=== PATIENT | female | born 1940 | race Two or more races ===

== ENCOUNTER → 2016-10-17 | Outpatient (CLI) | payer MEDICARE ==
[2016-10-17 11:25] LABS: BLOOD UREA NITROGEN 20 MG/DL (7-18); GLOMERULAR FILTRATION RATE > 60.0 (>39)
== END ==
LOC: M LAB 10:41
PROVIDERS: ATTEND Internal Medicine Gastroenterology
DX: R10.32 Left lower quadrant pain (principal)

== ENCOUNTER → 2016-10-24 | Outpatient (CLI) | payer MEDICARE ==
[~2016-10-24] MED LIST: GASTROGRAFIN SOLUTION 30ML (Q9963) As Ordered ONE; ISOVUE-370 76% 100ML VIAL (Q9967) As Ordered ONE
--- NOTE | 2016-10-24 15:35 | REP ---
CT abdomen and pelvis without and with IV contrast: With oral contrast. History: Left lower quadrant abdominal pain. Comparison CT study May 15, 2013. CT contrast dose: 100 ml of Isovue [address] findings: Preliminary digital import manager radiograph is unremarkable. The lung bases show cystic bronchiectasis bilaterally in the lower lobes particularly in the right lower lobe. These changes are not new. Some mild associated fibrosis is seen. No pleural effusion noted. There are nonenhancing well-circumscribed low density lesions in the left lobe of the liver consistent with cysts, which are unchanged from the 2013 prior study except that the largest left lobe lesion is a little larger today measuring 2.0 cm currently versus 1.5 cm previously. There is one tiny subcentimeter cyst in the right lobe which is unchanged. There is an 8 mm hypervascular lesion in the periphery of the right lobe of the liver posteriorly consistent with a hemangioma. Not previously noted. The liver is otherwise unremarkable. The spleen is normal in appearance. No adrenal lesion is seen. No pancreatic abnormalities observed. The gallbladder is unremarkable. Kidneys enhance symmetrically and are morphologically intact. No hydronephrosis, cyst, or mass lesion is observed on either side. Small and large intestinal bowel loops are unremarkable. There is an infraumbilical ventral hernia transmitting some omental fat unchanged. Normal appendix is seen. There is left colonic diverticulosis. No CT evidence of diverticulitis. Urinary bladder is unremarkable. Uterus is surgically absent. No pelvic mass or adenopathy is seen. Bone window settings show no bony destructive lesion. Delayed postcontrast imaging shows no evidence of filling defect in the intrarenal collecting systems on either side. Impression: 1. Bilateral lower lobe bronchiectasis, right greater than left. 2. Several scattered hepatic cysts. A small posterior hemangioma is seen in the right lobe of the liver measuring 8 mm. This is not previously seen. Suggest 6-month follow-up CT study with IV contrast. 3. Left colonic diverticulosis without CT evidence of diverticulitis. 4. Stable infraumbilical small ventral hernia transmitting some omental fat. Signed by Mor Ugalde MD 10/24/2016 04:24 P
== END ==
LOC: M RAD 12:04
PROVIDERS: ATTEND Internal Medicine Gastroenterology
DX: J47.9 Bronchiectasis, uncomplicated (principal); K76.89 Other specified diseases of liver; K57.30 Diverticulosis of large intestine without perforation or abscess without bleeding
CPT/HCPCS: 74178; Q9963; Q9967

== ENCOUNTER → 2017-06-12 | Outpatient (CLI) | payer MEDICARE ==
[2017-06-16 00:06] LABS: SJOGREN'S ANTI SS-A <0.2 AI (0.0-0.9); SJOGREN'S ANTI SS-B <0.2 AI (0.0-0.9)
== END ==
LOC: M SMT 11:16
PROVIDERS: ATTEND Internal Medicine Pulmonary Disease
DX: J47.9 Bronchiectasis, uncomplicated (principal)

== ENCOUNTER 2019-02-28 10:59 | Day surgery (SDC) | payer MEDICARE ==
[~2019-02-28] VITALS: Ht 149.9 cm; Wt 63.4 kg
[~2019-02-28 10:59] MED LIST changes: +ACET-897 PO; +ALBU83IN INH; +CALC1CAP34 PO; -GASTROGRAFIN SOLUTION 30ML (Q9963) As Ordered ONE; +GINK1CAP PO; -ISOVUE-370 76% 100ML VIAL (Q9967) As Ordered ONE; +LECI1CAP2 PO; +LR 1,000 ML IV ONE; +MELA3TAB49 PO; +MIRA3350 PO; +MONT10TA2 PO; +PRED5TA PO; +PROB1CAP10 PO; +TRAM50TA2 PO; +VITA500T PO
[2019-02-28] MEDS ORDERED: HYDR-3713 PO (11:29)
[2019-02-28] MEDS ORDERED: ALBUTEROL SULFATE 2.5 MG/0.5 ML INH NEB SOLN As Ordered ONE (11:45)
[2019-02-28] MEDS ORDERED: MIDAZOLAM INJ 2 MG/2 ML VIAL (J2250) As Ordered ONE (11:57)
[2019-02-28] MEDS ORDERED: fentaNYL 100 MCG/2 ML INJECTION (J3010) As Ordered ONE (11:57)
[2019-02-28] MEDS ORDERED: LIDOCAINE 2% INJ 100 MG/5 ML SDV (FOR ANES.) As Ordered ONE (11:57)
[2019-02-28] MEDS ORDERED: PROPOFOL 200 MG/20 ML VIAL As Ordered ONE ×3 (11:57→15:05)
[2019-02-28] MEDS ORDERED: ALBUTEROL SULFATE 2.5 MG/0.5 ML INH NEB SOLN INH ONE (12:00)
[2019-02-28] MEDS ORDERED: LIDOCAINE 2% MDV 20 ML VIAL As Ordered ONE (12:45)
[2019-02-28] MEDS ORDERED: BUPIVACAINE HCL 0.5% 30 ML VIAL As Ordered ONE (12:45)
[2019-02-28] MEDS ORDERED: NEOSPORIN GU IRRIG 20 ML VIAL As Ordered ONE (12:46)
[2019-02-28] MEDS ORDERED: BACITRACIN PWD 50,000 UNITS VIAL As Ordered ONE (12:46)
[2019-02-28] MEDS: dexameTHASONE 4 MG/ML 1ML VIAL (J1100) As Ordered ONE ×2 (14:55→15:21)
[2019-02-28] MEDS ORDERED: ONDANSETRON 4MG/2ML VIAL (J2405) As Ordered ONE (15:02)
[2019-02-28] MEDS ORDERED: dexameTHASONE 4 MG/ML 1ML VIAL (J1100) As Ordered ONE (15:02)
[2019-02-28] MEDS ORDERED: KETOROLAC 60 MG/2 ML VIAL (J1885) As Ordered ONE (15:02)
[2019-02-28 16:10] VITALS: BP 142/79
--- NOTE | 2019-02-28 16:25 | REP ---
Right foot three views History: Fourth and fifth digit arthroplasty A cast is present obscuring detail. The patient is status post arthroplasty of the the fourth and fifth digits. There has been resection of the heads of the proximal phalanges of the fourth and fifth digits. There is no acute fracture or dislocation. There is narrowing of the first and third metatarsal phalangeal joint spaces. Impression: The patient is status post arthroplasty of the fourth and fifth digits. There is anatomic alignment. Electronically Signed by Stevo Elias MD 02/28/2019 04:16 P
--- NOTE | 2019-03-02 10:05 | RO ---
DATE OF SURGERY: 02/28/2019 PREOPERATIVE DIAGNOSES: 1. Deformed 2nd toe, right foot. 2. Hammertoe deformity 4th toe, right foot. 3. Hammertoe deformity 5th toe, right foot. 4. 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 5. Extensor contracture, 5th metatarsophalangeal joint, right foot. POSTOPERATIVE DIAGNOSES: PROCEDURES PERFORMED: 1. Partial 2nd toe amputation, right foot. 2. Proximal interphalangeal joint arthroplasty, 4th toe, right foot. 3. Proximal interphalangeal joint arthroplasty, 5th toe, right foot. 4. Extensor capsulotomy with extensor tendon lengthening, 4th metatarsophalangeal joint, right foot. 5. Extensor capsulotomy with lengthening extensor tendon, 5th metatarsophalangeal joint. HARDWARE UTILIZED: None. SURGEON: Aravind Sim DPM BRUSH LOADER AND HANDLE ATTACHER: None ANESTHESIA: Local MAC HEMOSTASIS: Ankle pneumatic tourniquet at 200 mmHg for 35 minutes. DESCRIPTION OF OPERATION: On 02/28/2019, this 78-year-old white female was taken from her hospital room to the operating room and placed on the operating table in the supine position. Following the induction of intravenous (IV) sedation and local and regional anesthesia, the right lower extremity was prepped and draped in the usual aseptic manner. Attention was directed to the patient's 2nd toe of the right foot, where the following procedure was performed: PARTIAL 2ND TOE AMPUTATION, RIGHT FOOT, AT THE DISTAL INTERPHALANGEAL JOINT: Attention was directed to the patient's 2nd toe, which was noted to be remarkably deformed with a severe angulation at the distal interphalangeal joint. At this time, a modified racket incision was placed at the level of the distal interphalangeal joint, cutting sharply to bone. All bleeders as encountered were electrocoagulated. The toe was disarticulated at the distal interphalangeal joint. Mobilization of the skin at the fusion site revealed the head of the middle phalanx, which was then osteotomized from dorsal to plantar through and through. The wound was flushed with copious amounts of dilute bacitracin, neomycin, and Polymyxin B solution. The skin was coapted and maintained with 4- 0 Prolene in a simple interrupted and horizontal mattress-type fashion. Attention was then directed to the patient's 4th toe, where the following procedure was performed: PROXIMAL INTERPHALANGEAL JOINT ARTHROPLASTY, 4TH TOE, RIGHT FOOT: Attention was directed to the patient's 4th toe, where there was noted to be a severe hammertoe deformity. At this time, a linear incision was placed from the metatarsophalangeal joint to just distal to the proximal interphalangeal joint. Dissection was then carried down, and the extensor expansion and martinez was released. A Z-plasty tendon lengthening was then performed at the extensor tendon. Medial and lateral collateral ligaments were sharply dissected free from the head of the proximal phalanx; and utilizing a power saw, an osteotomy was performed at the anatomical neck of the proximal phalanx from dorsal to plantar medial to lateral through and through, and this was extirpated from the wound. The toe still had a dorsal contracture; and, therefore, the following procedure was performed: 4TH METATARSOPHALANGEAL JOINT CAPSULOTOMY: The dorsal capsulotomy was then released; and utilizing a metatarsal elevator, the plantar plate was released, as well. The wound was then flushed with copious amount of dilute bacitracin, neomycin, and Polymyxin B solution. Utilizing a 4- 0 braided nylon loop suture, a four-stranded core repair was performed of the extensor tendon in a modified Aguirre fashion. The skin was then coapted and maintained utilizing 4-0 Prolene in a simple interrupted and horizontal mattress-type fashion. Attention was then directed to the 5th toe, where the following procedure was performed: PROXIMAL INTERPHALANGEAL JOINT ARTHROPLASTY, 5TH TOE, RIGHT FOOT: Attention was directed to the patient's 5th toe, where the procedure performed on the 4th toe was now performed on the 5th toe without variation or deletion, the only exception being that of anatomical location. There was noted to be an extensor contracture of the 5th metatarsophalangeal joint, therefore, the following procedure was performed: EXTENSOR CAPSULOTOMY WITH RELEASE OF THE PLANTAR PLATE, 5TH METATARSOPHALANGEAL JOINT, RIGHT FOOT: Attention was directed to the patient's 5th metatarsophalangeal joint, where the procedure performed on the 4th metatarsophalangeal joint was now performed on the 5th metatarsophalangeal joint without variation or deletion, the only exception being that of anatomical location. Following the completion of surgical procedure, 4 mg of dexamethasone sodium phosphate was instilled proximal to the surgical site. Attention was directed towards bandaging, where a sterile compressive bandage applied, consisting of Adaptic, 4 x 4's, 4 x 4 splints, Betadine splints to hold the 4th and 5th toe in a straight position, and Coban. The ankle pneumatic tourniquet was rapidly deflated, and instantaneous capillary filling time was noted in digits 1 through 5 of the patient's right foot. The patient, apparently having tolerated the surgical procedure well, was taken from the operating room (OR) to the recovery room for further monitoring by the anesthesia department. Postoperative instructions will be given upon discharge. MARTA
== END 2019-02-28 16:48 | disposition home or self-care (01) ==
LOC: M SDC 10:59
PROVIDERS: ATTEND Podiatrist
DX: M20.41 Other hammer toe(s) (acquired), right foot (principal); M79.671 Pain in right foot; D64.9 Anemia, unspecified; J45.909 Unspecified asthma, uncomplicated; I73.9 Peripheral vascular disease, unspecified; Z88.1 Allergy status to other antibiotic agents; Z79.51 Long term (current) use of inhaled steroids; Z79.52 Long term (current) use of systemic steroids; Z79.899 Other long term (current) drug therapy
CPT/HCPCS: 28200; 28270; 28285; 28825; 73630; 88300; J0690; J1100; J1885; J2250; J2405; J3010

== ENCOUNTER → 2020-01-30 | Outpatient (CLI) | payer MEDICARE ==
[~2020-01-30] MED LIST changes: +HYDR-3713 PO; -LR 1,000 ML IV ONE; -MONT10TA2 PO; +MONT10TA4 PO; +VITA-243 PO; -VITA500T PO
--- NOTE | 2020-01-30 13:53 | REPPI ---
THREE VIEWS LEFT SHOULDER: PRIORS: None. There is AC joint DJD with asymmetric joint space narrowing and osteophytosis. There is heavy humeral head osteophytosis. The humeral head is subluxed superiorly within the glenohumeral joint. There is no acute fracture or dislocation, however, there is a large centimeter-sized calcification superolateral to the humeral head which is smoothly marginated and possibly well corticated. This can be secondary to chronic calcific supraspinatus tendinitis or subdeltoid bursitis. IMPRESSION: Chronic changes as described above. THREE VIEWS OF THE RIGHT SHOULDER: There is AC joint DJD with irregular joint space narrowing and osteophytosis. Heavy humeral had marginal osteophytes are present. The humeral head is subluxated superiorly within the glenohumeral joint. There is no evidence of acute fracture or dislocation. IMPRESSION: Rather marked appearing chronic changes as described above. Electronically Signed by Giorgio Rincon DO 01/30/2020 04:07 P
--- NOTE | 2020-01-30 14:08 | REPPI ---
REASON: Polyarthritis. COMPARISON: None. LEFT HAND FOUR VIEWS: There is asymmetric intradigital joint space narrowing affecting all digits but particularly the proximal and distal interphalangeal joints of the 5th digit where the proximal interphalangeal joint is subluxed medially and the distal interphalangeal joint is subluxed laterally. Heavy marginal osteophyte formation is seen involving the proximal and distal interphalangeal joints of the 5th digit with more mild to moderate appearing osteophyte formation involving the remainder of the digits of the left hand. There slight to moderate marginal osteophyte formation involving the heads of the 2nd and 3rd metacarpals of the left hand. There is also evidence of subluxation of the metacarpophalangeal joints of digits 2 and 3, which is ventromedial. There is no evidence of periarticular osteopenia. There is no evidence of a fracture. IMPRESSION: Degenerative changes as described above, rather advanced. FOUR VIEWS OF THE RIGHT HAND: There asymmetric intradigital joint space narrowing involving all joints particularly the proximal interphalangeal joint of the 4th digit where there is medial subluxation and heavy marginal osteophyte formation. More mild to moderate marginal osteophytes are seen involving all other joints of the right hand. There is mild to moderate subluxation of the 3rd metacarpophalangeal joint, which is predominantly ventral. Slight marginal osteophytosis is seen involving the 2nd and 3rd metacarpal heads. There is no evidence of any acute fracture. There is no periarticular osteopenia. IMPRESSION: Rather advanced chronic changes seen involving the right hand as described above. Electronically Signed by Giorgio Rincon DO 01/30/2020 04:08 P
== END ==
LOC: M PLAIMG 11:34
PROVIDERS: ATTEND Internal Medicine
DX: M19.041 Primary osteoarthritis, right hand (principal); M19.042 Primary osteoarthritis, left hand; M19.011 Primary osteoarthritis, right shoulder; M19.012 Primary osteoarthritis, left shoulder; M06.4 Inflammatory polyarthropathy

== ENCOUNTER → 2020-01-30 | Outpatient (REF) | payer MEDICARE ==
[2020-01-30 16:16] LABS: BASO # 0.1 10^3/uL (0.0-0.2); BASO % 1.3 % (0.0-1.0); EOS # 0.2 10^3/uL (0.0-0.5); EOS % 1.8 % (0.0-3.0); HEMATOCRIT 41.9 % (36.0-47.0); HEMOGLOBIN 12.8 g/dl (12.0-15.5); LYMPH # 2.1 10^3/uL (1.5-5.0); LYMPH % 25.8 % (24.0-44.0); MEAN CORPUSCULAR HEMOGLOBIN 26.6 pg (27.0-33.0); MEAN CORPUSCULAR HGB CONC 30.5 g/dl (32.0-36.5); MEAN CORPUSCULAR VOLUME 87.1 fl (80.0-96.0); MONO # 0.7 10^3/uL (0.0-0.8); NEUTROPHILS # 5.2 10^3/uL (1.5-8.5); NEUTROPHILS % 62.9 % (36.0-66.0); PLATELET COUNT, AUTOMATED 481 10^3/uL (150-450); RED BLOOD COUNT 4.81 10^6/uL (4.00-5.40); WHITE BLOOD COUNT 8.3 10^3/uL (4.0-10.0)
[2020-01-30 16:22] LABS: ALBUMIN 3.8 GM/DL (3.2-5.2); ALT/SGPT 22 U/L (12-78); BILIRUBIN,TOTAL 0.6 MG/DL (0.2-1.0); BLOOD UREA NITROGEN 21 MG/DL (7-18); C REACTIVE PROTEIN QUANTITATIV 0.46 MG/DL (0.00-0.30); CALCIUM LEVEL 9.6 MG/DL (8.8-10.2); CARBON DIOXIDE LEVEL 29 MEQ/L (21-32); CHLORIDE LEVEL 103 MEQ/L (98-107); CREATININE FOR GFR 0.59 MG/DL (0.55-1.30); GLOMERULAR FILTRATION RATE > 60.0 (>39); GLUCOSE, FASTING 81 MG/DL (70-100); POTASSIUM SERUM 4.6 MEQ/L (3.5-5.1); RHEUMATOID FACTOR QUANT < 10.0 IU/ML (<15.0); SODIUM LEVEL 138 MEQ/L (136-145)
[2020-01-30 16:41] LABS: ERYTHROCYTE SEDIMENTATION RATE 35 mm/hr (0-30)
[2020-02-02 10:39] LABS: HEPATITIS B SURFACE ANTIGEN NEGATIVE (NEGATIVE)
== END ==
LOC: M SFHCRHEU 11:13
PROVIDERS: ATTEND Internal Medicine
DX: M06.4 Inflammatory polyarthropathy (principal)

== ENCOUNTER → 2020-03-12 | Outpatient (CLI) | payer MEDICARE ==
[~2020-03-12] MED LIST changes: +FAMO40TA3 PO; +SENN8.6T28 PO; +SULF1TAB93 PO
== END ==
LOC: M LABSMTC 11:04
PROVIDERS: ATTEND Anesthesiology
DX: Z11.59 Encounter for screening for other viral diseases (principal)
CPT/HCPCS: C9803; U0003

== ENCOUNTER 2020-03-15 08:43 | Day surgery (SDC) | payer MEDICARE ==
[~2020-03-15] VITALS: Ht 152.4 cm; Wt 57.3 kg
[~2020-03-15 08:43] MED LIST changes: +NS 1,000 ML IV ONE
[2020-03-15] MEDS ORDERED: propofoL 200 MG/20 ML VIAL As Ordered ONE ×2 (11:28→12:05)
[2020-03-15] MEDS ORDERED: LIDOCAINE 2% 100MG/5ML SDV (FOR ANES.) As Ordered ONE (11:28)
--- NOTE | 2020-03-15 12:24 | ROOR ---
Patient Name: Uma You Procedure Date: 03/15/2020 11:37 AM Date of : 1940 Age: 79 Room: [facility] Gender: Female Note Status: Finalized Procedure: Upper GI endoscopy Indications: Epigastric abdominal pain, Weight loss Providers: Pete Venegas MD Referring MD: MARTINA YADAV MD Requesting Provider: Medicines: Monitored Anesthesia Care Complications: No immediate complications. Procedure: Pre-Anesthesia Assessment: - Prior to the procedure, a History and Physical was performed, and patient medications and allergies were reviewed. The patient is competent. The risks and benefits of the procedure and the sedation options and risks were discussed with the patient. All questions were answered and informed consent was obtained. Patient identification and proposed procedure were verified by the physician, the nurse and the anesthesiologist in the procedure room. Mental Status Examination: alert and oriented. Airway Examination: normal oropharyngeal airway and neck mobility. Respiratory Examination: clear to auscultation. CV Examination: normal. Prophylactic Antibiotics: The patient does not require prophylactic antibiotics. Prior Anticoagulants: The patient has taken no previous anticoagulant or antiplatelet agents. ASA Grade Assessment: III - A patient with severe systemic disease. After reviewing the risks and benefits, the patient was deemed in satisfactory condition to undergo the procedure. The anesthesia plan was to use monitored anesthesia care (MAC). Immediately prior to administration of medications, the patient was re-assessed for adequacy to receive sedatives. The heart rate, respiratory rate, oxygen saturations, blood pressure, adequacy of pulmonary ventilation, and response to care were monitored throughout the procedure. The physical status of the patient was re-assessed after the procedure. The Endoscope was introduced through the mouth, and advanced to the second part of duodenum. The upper GI endoscopy was accomplished without difficulty. The patient tolerated the procedure well. Findings: The examined esophagus was normal. Two non-bleeding cratered gastric ulcers with a clean ulcer base (Ty Class III) were found in the prepyloric region of the stomach. The largest lesion was 10 mm in largest dimension. Biopsies were taken with a cold forceps for histology. Verification of patient identification for the specimen was done by the physician and nurse using the patient's name, date and medical record number. Estimated blood loss was minimal. Diffuse moderate inflammation characterized by erythema and granularity was found in the gastric body and in the gastric antrum. Biopsies were taken with a cold forceps for Helicobacter pylori testing. The duodenal bulb and second portion of the duodenum were normal. Impression: - Normal esophagus. - Non-bleeding gastric ulcers with a clean ulcer base (Ty Class III). Biopsied. - Gastritis. Biopsied. - Normal duodenal bulb and second portion of the duodenum. Recommendation: - Patient has a contact number available for emergencies. The signs and symptoms of potential delayed complications were discussed with the patient. Return to normal activities tomorrow. Written discharge instructions were provided to the patient. - Full liquid diet today, then advance as tolerated to high fiber diet. - Continue present medications. - Use Protonix (pantoprazole) 40 mg PO BID for 3 months. - Await pathology results. - Repeat upper endoscopy in 3 months to check healing. - Return to GI clinic in [facility] (address [address], [address], [place], [facility]) in 4 -- 6 weeks. Please call GI clinic @ [phone] for apppointment date and time. - Return to primary care physician. Pete Venegas MD Pete Venegas MD 03/15/2020 12:24:43 PM Electronically signed by Pete Venegas MD Number of Addenda: 0 Note Initiated On: 03/15/2020 11:37 AM Estimated Blood Loss: Estimated blood loss was minimal.
[2020-03-15] MEDS ORDERED: PANTOPRAZOLE 40MG VIAL (C9113 PER 1) IV ONE (12:30)
--- NOTE | 2020-03-15 12:36 | ROOR ---
Patient Name: Uma You Procedure Date: 03/15/2020 11:38 AM Date of : 1940 Age: 79 Room: [facility] Gender: Female Note Status: Finalized Procedure: Colonoscopy Indications: Constipation, Weight loss Providers: Pete Venegas MD Referring MD: MARTINA YADAV MD Requesting Provider: Medicines: Monitored Anesthesia Care Complications: No immediate complications. Procedure: Pre-Anesthesia Assessment: - Prior to the procedure, a History and Physical was performed, and patient medications and allergies were reviewed. The patient is competent. The risks and benefits of the procedure and the sedation options and risks were discussed with the patient. All questions were answered and informed consent was obtained. Patient identification and proposed procedure were verified by the physician, the nurse and the anesthesiologist in the procedure room. Mental Status Examination: alert and oriented. Airway Examination: normal oropharyngeal airway and neck mobility. Respiratory Examination: clear to auscultation. CV Examination: normal. Prophylactic Antibiotics: The patient does not require prophylactic antibiotics. Prior Anticoagulants: The patient has taken no previous anticoagulant or antiplatelet agents. ASA Grade Assessment: III - A patient with severe systemic disease. After reviewing the risks and benefits, the patient was deemed in satisfactory condition to undergo the procedure. The anesthesia plan was to use monitored anesthesia care (MAC). Immediately prior to administration of medications, the patient was re-assessed for adequacy to receive sedatives. The heart rate, respiratory rate, oxygen saturations, blood pressure, adequacy of pulmonary ventilation, and response to care were monitored throughout the procedure. The physical status of the patient was re-assessed after the procedure. The Colonoscope was introduced through the anus and advanced to the cecum, identified by appendiceal orifice and ileocecal valve. The colonoscopy was performed without difficulty. The patient tolerated the procedure well. The quality of the bowel preparation was good. The ileocecal valve, appendiceal orifice, and rectum were photographed. Scope insertion time was 4 minutes. Scope withdrawal time was 10 minutes. The total duration of the procedure was 16 minutes. Findings: The perianal and digital rectal examinations were normal. A 15 mm polyp was found in the ascending colon. The polyp was sessile. The polyp was removed with a hot snare. Resection and retrieval were complete. Verification of patient identification for the specimen was done by the physician and nurse using the patient's name, date and medical record number. Estimated blood loss was minimal. Multiple small and large-mouthed diverticula were found from sigmoid to descending colon. There was evidence of diverticular spasm. There was no evidence of diverticular bleeding. Non-bleeding external and internal hemorrhoids were found during retroflexion. The hemorrhoids were large. Impression: - One 15 mm polyp in the ascending colon, removed with a hot snare. Resected and retrieved. - Severe diverticulosis from sigmoid to descending colon. There was evidence of diverticular spasm. There was no evidence of diverticular bleeding. - Non-bleeding external and internal hemorrhoids. Recommendation: - Patient has a contact number available for emergencies. The signs and symptoms of potential delayed complications were discussed with the patient. Return to normal activities tomorrow. Written discharge instructions were provided to the patient. - Full liquid diet today, then advance as tolerated to high fiber diet. - Continue present medications. - Miralax 1 capful (17 grams) in 8 ounces of water PO daily. - Await pathology results. - Repeat colonoscopy in 3 years for surveillance based on pathology results. - Return to GI clinic in [facility] (address [address], [address], [place], [facility]) in 4 -- 6 weeks. Please call GI clinic @ [phone] for apppointment date and time. - Follow the recommendations as per the other procedure note. - Return to primary care physician. Pete Venegas MD Pete Venegas MD 03/15/2020 12:35:37 PM Electronically signed by Pete Venegas MD Number of Addenda: 0 Note Initiated On: 03/15/2020 11:38 AM Estimated Blood Loss: Estimated blood loss was minimal.
[2020-03-15 12:52] VITALS: BP 160/80
== END 2020-03-15 12:54 | disposition home or self-care (01) ==
LOC: M OPP 08:43
PROVIDERS: ATTEND Internal Medicine Gastroenterology
DX: D12.2 Benign neoplasm of ascending colon (principal); K64.8 Other hemorrhoids; K59.00 Constipation, unspecified; R63.4 Abnormal weight loss; K57.30 Diverticulosis of large intestine without perforation or abscess without bleeding; K25.9 Gastric ulcer, unspecified as acute or chronic, without hemorrhage or perforation; K29.70 Gastritis, unspecified, without bleeding; R10.13 Epigastric pain; Z79.899 Other long term (current) drug therapy; Z88.1 Allergy status to other antibiotic agents
CPT/HCPCS: 43239; 45385; 88305; C9113

== ENCOUNTER → 2022-04-17 | Outpatient (CLI) | payer MEDICARE ==
[~2022-04-17] MED LIST changes: +ALBU2.5V10 INH; -ALBU83IN INH; +B-12100010 PO; +BACTDSTA PO; -LECI1CAP2 PO; -MONT10TA4 PO; +MONT10TA97 PO; -NS 1,000 ML IV ONE; +PANT20TA6 PO; +PRAV20TA2 PO; -SULF1TAB93 PO; +VITA100T59 PO; +VITALIQ60 MC; +[UNRECOGNIZED DRUG - CODE] PO
== END ==
LOC: M LABSMTC 11:28
PROVIDERS: ATTEND Anesthesiology
DX: Z01.812 Encounter for preprocedural laboratory examination (principal); Z20.822 Contact with and (suspected) exposure to COVID-19

== ENCOUNTER → 2022-05-08 | Outpatient (REF) | payer MEDICARE | LOC: M LAB REF 16:58 | PROVIDERS: ATTEND Internal Medicine Pulmonary Disease | DX: R05.9 Cough, unspecified (principal) ==

== ENCOUNTER → 2022-06-20 | Outpatient (CLI) | payer MEDICARE ==
[~2022-06-20] MED LIST changes: +COQ-100C5 PO; +VITA100093 PO
== END ==
LOC: M LABSMTC 11:03
PROVIDERS: ATTEND Anesthesiology
DX: Z01.818 Encounter for other preprocedural examination (principal); Z11.52 Encounter for screening for COVID-19

== ENCOUNTER 2022-06-23 09:00 | Day surgery (SDC) | payer MEDICARE ==
[~2022-06-23] VITALS: Ht 137.2 cm; Wt 59.3 kg
[~2022-06-23 09:00] MED LIST changes: +BSS IRR 500ML/OMIDRIA 4ML IRR BAG (OR ONLY) As Ordered ONE; +CEFUROXIME 1MG/0.1ML INTRACAMERAL INJ As Ordered ONE; +LIDOCAINE 1% SDV 5ML VIAL As Ordered ONE; +PROPARACAINE 0.5% OPHTH SOL 15ML OD ONE
[2022-06-23] MEDS: TROPICAMIDE 1% OPHTH SOLN 2ML OD SCH ×3 (10:11→10:38)
[2022-06-23] MEDS: PHENYLEPHRINE 2.5% OPHTH SOL 2ML OD SCH ×3 (10:11→10:38)
[2022-06-23] MEDS ORDERED: TOBRAMYCIN 0.3% OPHTH SOLN 5 ML OD SCH (10:35)
[2022-06-23] MEDS ORDERED: MIDAZOLAM INJ 2MG/2ML VIAL (J2250 PER 1MG) As Ordered ONE (11:08)
[2022-06-23 11:26] VITALS: BP 146/70
== END 2022-06-23 11:52 | disposition home or self-care (01) ==
LOC: M SDC 09:00
PROVIDERS: ATTEND Ophthalmology
DX: H25.11 Age-related nuclear cataract, right eye (principal); I73.9 Peripheral vascular disease, unspecified; R94.31 Abnormal electrocardiogram [ECG] [EKG]; K57.92 Diverticulitis of intestine, part unspecified, without perforation or abscess without bleeding; K21.9 Gastro-esophageal reflux disease without esophagitis; R32 Unspecified urinary incontinence; Z79.899 Other long term (current) drug therapy; Z79.51 Long term (current) use of inhaled steroids; J45.909 Unspecified asthma, uncomplicated; Z88.1 Allergy status to other antibiotic agents; Z88.8 Allergy status to other drugs, medicaments and biological substances
CPT/HCPCS: 66984; J0697; J1097; J2250; V2632

== ENCOUNTER → 2022-10-05 | Outpatient (CLI) | payer MEDICARE ==
[~2022-10-05] MED LIST changes: -BSS IRR 500ML/OMIDRIA 4ML IRR BAG (OR ONLY) As Ordered ONE; -CEFUROXIME 1MG/0.1ML INTRACAMERAL INJ As Ordered ONE; -LIDOCAINE 1% SDV 5ML VIAL As Ordered ONE; -PROPARACAINE 0.5% OPHTH SOL 15ML OD ONE
== END ==
LOC: M LABSMTC 11:09
PROVIDERS: ATTEND Anesthesiology
DX: Z01.812 Encounter for preprocedural laboratory examination (principal); Z11.52 Encounter for screening for COVID-19

== ENCOUNTER → 2022-10-19 | Outpatient (CLI) | payer MEDICARE ==
[~2022-10-19] MED LIST changes: +FLUTISP
== END ==
LOC: M LABSMTC 11:24
PROVIDERS: ATTEND Anesthesiology
DX: Z01.818 Encounter for other preprocedural examination (principal)

== ENCOUNTER 2022-10-24 07:14 | Day surgery (SDC) | payer MEDICARE ==
[~2022-10-24] VITALS: Ht 152.4 cm; Wt 56.2 kg
[~2022-10-24 07:14] MED LIST changes: +BSS IRR 500ML/OMIDRIA 4ML IRR BAG (OR ONLY) As Ordered ONE; +CEFUROXIME 1MG/0.1ML INTRACAMERAL INJ As Ordered ONE; +CYCLOPENTOLATE 1% OPHTH SOLN 2ML BTL OS SCH; +LIDOCAINE 1% SDV 5ML VIAL As Ordered ONE; +PHENYLEPHRINE 2.5% OPHTH SOL 2ML OS SCH; +PROPARACAINE 0.5% OPHTH SOL 15ML OS ONE; +TROPICAMIDE 1% OPHTH SOLN 15ML OS SCH
[2022-10-24] MEDS ORDERED: fentaNYL 100 MCG/2 ML INJECTION As Ordered ONE (08:39)
[2022-10-24] MEDS ORDERED: TOBRADEX OPHTH OINT 3.5 GM As Ordered ONE (09:08)
[2022-10-24 09:15] VITALS: BP 146/76
== END 2022-10-24 09:35 | disposition home or self-care (01) ==
LOC: M SDC 07:14
PROVIDERS: ATTEND Ophthalmology
DX: H25.12 Age-related nuclear cataract, left eye (principal); Z88.1 Allergy status to other antibiotic agents; Z88.8 Allergy status to other drugs, medicaments and biological substances; Z79.51 Long term (current) use of inhaled steroids; Z79.899 Other long term (current) drug therapy; E78.5 Hyperlipidemia, unspecified; R94.31 Abnormal electrocardiogram [ECG] [EKG]; Z86.718 Personal history of other venous thrombosis and embolism; R51.9 Headache, unspecified; J45.909 Unspecified asthma, uncomplicated; I73.9 Peripheral vascular disease, unspecified
CPT/HCPCS: 66984; J1097; V2632

== ENCOUNTER 2022-12-09 17:46 | Emergency (ER) | payer MEDICARE ==
[~2022-12-09] VITALS: Ht 149.9 cm; Wt 56.8 kg
[~2022-12-09 17:46] MED LIST changes: -BSS IRR 500ML/OMIDRIA 4ML IRR BAG (OR ONLY) As Ordered ONE; -CEFUROXIME 1MG/0.1ML INTRACAMERAL INJ As Ordered ONE; -CYCLOPENTOLATE 1% OPHTH SOLN 2ML BTL OS SCH; -LIDOCAINE 1% SDV 5ML VIAL As Ordered ONE; -PHENYLEPHRINE 2.5% OPHTH SOL 2ML OS SCH; -PROPARACAINE 0.5% OPHTH SOL 15ML OS ONE; -TROPICAMIDE 1% OPHTH SOLN 15ML OS SCH
[2022-12-09] MEDS ORDERED: LIDOCAINE W/EPINEPHRINE 1% 20ML VIAL SC ONE (19:50)
[2022-12-09] MEDS ORDERED: BOOSTRIX/ADACEL VACCINE (DIPHTH/PERTUSS/ACELL/TETANUS) 0.5ML SYR IM.IMMUN ONE (20:45)
[2022-12-09] MEDS ORDERED: ACETAMINOPHEN TAB 650MG DOSE (2X325MG) PO ONE (20:55)
[2022-12-09 21:00] VITALS: BP 162/79
== END 2022-12-09 21:23 | disposition home or self-care (01) ==
LOC: M ED 17:46 → EDBD 17:46 → M ED 21:23
DX: S01.81XA Laceration without foreign body of other part of head, initial encounter (principal); W01.0XXA Fall on same level from slipping, tripping and stumbling without subsequent striking against object, initial encounter; I10 Essential (primary) hypertension; E78.5 Hyperlipidemia, unspecified; J45.909 Unspecified asthma, uncomplicated; Z88.1 Allergy status to other antibiotic agents; Z91.018 Allergy to other foods; Z79.52 Long term (current) use of systemic steroids; Z79.899 Other long term (current) drug therapy; Z79.811 Long term (current) use of aromatase inhibitors